=== PATIENT | female | born 1975 | race Caucasian/White ===

== ENCOUNTER → 2018-08-23 11:53 | Outpatient (CLI) | payer MEDICAID, SELFPAY ==
[2016-10-24 10:08] VITALS: BMI 26.8
[2018-08-10 10:52] VITALS: BMI 20.6
[2018-08-23 12:59] LABS: AST(SGOT) 11 U/L (15-37); Alanine Aminotransfer ALT/SGPT 18 U/L (13-56); Albumin, Serum 3.6 g/dL (3.2-5.0); Alkaline Phosphatase 77 U/L (45-117); Bilirubin, Direct 0.11 mg/dL (0.00-0.30); Cholesterol 136 mg/dL (200); Globulin 3.2 g/dL (2.2-4.2); High Density Lipoprotein 40 mg/dL; Protein, Total 6.8 g/dL (6.4-8.2); Triglycerides 105 mg/dL; Very Low Density Lipoprotein 21 mg/dL (5-40)
== END ==
PROVIDERS: Family Provider Family Medicine; PCP Family Medicine; Referring Provider Internal Medicine Cardiovascular Disease; Visit Provider Internal Medicine Cardiovascular Disease
DX: E78.5 Hyperlipidemia, unspecified (principal); I25.10 Atherosclerotic heart disease of native coronary artery without angina pectoris
CPT/HCPCS: 36415; 80061; 80076

== ENCOUNTER → 2019-04-25 | Outpatient (CLI) | payer MEDICAID, SELFPAY ==
[2016-10-24 10:08] VITALS: BMI 26.8
[2019-03-25 11:36] VITALS: BMI 22.6
[2019-04-25 11:43] LABS: AST(SGOT) 10 U/L (15-37); Alanine Aminotransfer ALT/SGPT 20 U/L (13-56); Albumin, Serum 3.6 g/dL (3.2-5.0); Alkaline Phosphatase 70 U/L (45-117); Cholesterol 128 mg/dL (200); Globulin 3.3 g/dL (2.2-4.2); High Density Lipoprotein 48 mg/dL; Protein, Total 6.9 g/dL (6.4-8.2); Triglycerides 69 mg/dL; Very Low Density Lipoprotein 14 mg/dL (5-40)
== END | disposition home or self-care (01) ==
LOC: LAB 10:35
PROVIDERS: Family Provider Family Medicine; PCP Family Medicine; Referring Provider Nurse Practitioner Family; Visit Provider Nurse Practitioner Family
DX: E78.5 Hyperlipidemia, unspecified (principal)
CPT/HCPCS: 36415; 80061; 80076

== ENCOUNTER → 2019-10-08 13:42 | Outpatient (CLI) | payer MEDICAID, SELFPAY ==
[2016-10-24 10:08] VITALS: BMI 26.8
[2019-09-26 13:15] VITALS: BMI 23.0
--- NOTE | 2019-10-08 13:44 | ECHOD_ITS ---
Reason For Study: CHF Procedure This was a 2D Doppler, Color Flow transthoracic echocardiogram. Myocardial strain analysis was performed in this exam to aid in the assessment of cardiac function. Exam performed in department. Left Ventricle Moderately dilated left ventricle. The estimated ejection fraction is 35-45 %. Stage 1 diastolic dysfunction. Infero-Basal: Severely Hypokinetic. Mid-Inferior: Severely Hypokinetic. Posterior- Basal: Severely hypokinetic. Right Ventricle Normal size and thickness. Normal systolic function. Atria Normal left atrium. Normal right atrium. Normal atrial septum. Mitral Valve Normal mitral valve. Moderately severe (3+) eccentric mitral valve insufficiency. Tricuspid Valve Normal tricuspid valve. Mild (1+) tricuspid valve insufficiency. Right ventricular systolic pressure estimated to be 22 mmHg. Aortic Valve Trisinus/trileaflet aortic valve. Mild diffuse aortic valve thickening. Mild (1+) aortic valve insufficiency. Pulmonic Valve Normal pulmonic valve. Trivial pulmonic valve insufficiency. Great Vessels Normal aortic root. Normal arch. Normal inferior vena cava. Inferior vena cava collapse with sniff. Pericardium/Pleural No pericardial effusion. MMode/2D Measurements & Calculations LVIDd: 5.2 cm IVSd: 0.75 cm Ao root diam: 3.3 cm LVIDs: 4.8 cm LVPWd: 0.78 cm RVDd: 2.7 cm FS: 8.3 % LAV(MOD-bp): 35.4 ml LA A4 area: 12.9 cm2 LA dimension(2D): 3.2 cm LAV(MOD-bp) Indexed: 22.8 ml/m2 LAV(MOD-sp2): 41.2 ml LAV(MOD-sp4): 29.2 ml RA A4 area: 10.4 cm2 Time Measurements MV dec time: 0.22 sec Doppler Measurements & Calculations MV E max isidro: 82.0 cm/sec Lat Peak E' Isidro: 10.8 cm/sec Med Peak E' Isidro: 6.8 cm/sec MV A max isidro: 57.8 cm/sec E/E' lat: 7.6 E/E' med: 12.1 MV E/A: 1.4 Ao V2 max: 121.1 cm/sec AI max isidro: 406.4 cm/sec LV V1 max: 78.8 cm/sec Ao max P.9 mmHg AI max P.1 mmHg LV V1 max P.5 mmHg AI dec slope: 244.2 cm/sec2 AI P1/2t: 487.6 msec PA V2 max: 83.3 cm/sec TR max isidro: 204.9 cm/sec TR max P.8 mmHg Interpretation Summary Moderately dilated left ventricle. The estimated ejection fraction is 35-45 %. Stage 1 diastolic dysfunction. Infero-Basal: Severely Hypokinetic. Mid-Inferior: Severely Hypokinetic. Posterior-Basal: Severely hypokinetic. Moderately severe (3+) eccentric mitral valve insufficiency. Mild (1+) tricuspid valve insufficiency. Right ventricular systolic pressure estimated to be 22 mmHg. Mild (1+) aortic valve insufficiency. Compared to echo report dated 03/08/2017, inferior posterior wall motion abnormalities have persisted, RVSP has remained about the same, but might regurgitation appears to have worsened from mild to moderate to severe. Recommend considering transesophageal echocardiogram to better evaluate degree of mitral vegetation. Would consider a transesophageal echocardiogram if clinically indicated. Ordering Physician: Stanford Jacques Referring Physician: PEDRO NAVAS Performed By: Meghann Kraus, JEANETTE, RVT
== END ==
PROVIDERS: PCP Family Medicine; Referring Provider Internal Medicine Cardiovascular Disease; Visit Provider Internal Medicine Cardiovascular Disease
DX: I25.5 Ischemic cardiomyopathy (principal); I25.10 Atherosclerotic heart disease of native coronary artery without angina pectoris; I25.2 Old myocardial infarction
CPT/HCPCS: 93306

== ENCOUNTER → 2019-10-16 09:20 | Outpatient (CLI) | payer MEDICAID, SELFPAY ==
[2016-10-24 10:08] VITALS: BMI 26.8
[2019-09-26 13:15] VITALS: BMI 23.0
--- NOTE | 2019-10-16 09:21 | STE_ITS ---
Reason For Study: CAD Stress Results Protocol: Cristofer Protocol Maximum Predicted HR: 176 bpm Target HR: 150 bpm % Maximum Predicted HR: 84 % DurationHeart Rate Stage (mm:ss) (bpm) BP Comment Baseline 70 98/54No Chest Pain Cristofer Protocol Stage I 3:00 90 106/60No Chest Pain Cristofer Protocol Stage II 3:00 103 116/58No Chest Pain Cristofer Protocol Stage III 3:00 123 130/50No Chest Pain; Mild Dyspnea Cristofer Protocol Stage IV 2:00 148 146/52No Chest Pain; Mild Dyspnea Recovery 85 96/52No Chest Pain Stress Duration: 11:00 mm:ss Maximum Stress HR: 148 bpm METS: 13 Baseline Echocardiogram Findings The estimated ejection fraction is 45 %. Stress Echo Wall motion Data Resting WM Intermediate WM Stress WM Resting Wall Motion Wall Motion Stress Mid-Lateral : Mildly hypokinetic. No regional wall motion Mid-Posterior: Mildly abnormalities noted. hypokinetic. Lateral-Basal: Mildly hypokinetic. EKG Data The baseline ECG displays normal sinus rhythm. The patient exercised according to the regular Cristofer protocol for a total duration of 11:00. The maximum heart rate attained was 150 beats per minute. This was 85% of maximum predicted heart rate. The patient exercised into stage 4 of the Cristofer protocol. At peak exercise, upsloping ST changes only were noted, which did not meet the criteria for ischemia. No clinical angina was noted. No arrhythmias noted. Interpretation Summary The estimated ejection fraction is 45 %. Normal, adequate, treadmill echocardiogram. Negative for ischemia by EKG and echocardiographic criteria. No anginal symptoms noted. No arrhythmias noted. Patient had baseline inferior basal lateral hypokinesis with an overall ejection fraction of 45%, with a final ejection fraction of 55 to 60% at peak exercise. Test terminated due to calf pain and target heart rate achieved. Patient tolerated procedure well. No complications. Ordering Physician: Stanford Jacques Referring Physician: Constantine Babcock Performed By: Elvia Olvera RDCS, RVT
== END ==
PROVIDERS: PCP Family Medicine; Referring Provider Internal Medicine Cardiovascular Disease; Visit Provider Internal Medicine Cardiovascular Disease
DX: I25.10 Atherosclerotic heart disease of native coronary artery without angina pectoris (principal); I25.2 Old myocardial infarction; I25.5 Ischemic cardiomyopathy
CPT/HCPCS: 93017; 93350

== ENCOUNTER 2019-10-21 08:56 | Outpatient (CLI) | payer MEDICAID, SELFPAY ==
[2016-10-24 10:08] VITALS: BMI 26.8
[2019-09-26 13:15] VITALS: BMI 23.0
--- NOTE | 2019-10-16 10:33 | RAD_ITS ---
STUDY: X-RAY CHEST REASON FOR EXAM: Female, 44 years old. PRE OP HEART CATH; -- H/O DC, STENT TECHNIQUE: PA and lateral views of the chest. COMPARISON: 10/23/2016 FINDINGS: The lungs are clear and expanded. There is no demonstrated pleural abnormality. Normal size heart. Normal mediastinum and gerard. Normal visualized pulmonary arteries. Normal visualized aortic arch and descending thoracic aorta. Normal visualized thoracic spine. Normal visualized ribs, clavicles, and shoulders. There is no demonstrated abnormality of the visualized soft tissue structures of the upper abdomen. RAD/Chest PA and Lateral IMPRESSION: Normal x-ray examination of the chest. Electronically Signed: Lonnie Marte DO at 15:02 EST Tel , Service support ,
[2019-10-16 11:29] LABS: Hematocrit 46.1 % (37-47); Hemoglobin 14.5 g/dL (12.0-15.0); Mean Corp Hgb Conc 31.5 g/dL (32-36); Mean Corpuscular Hgb 29.1 pg (27.0-32.0); Mean Corpuscular Volume 92.6 fL (81-99); Mean Platelet Vol. 10.1 fl (6.2-12.0); Platelet Count 242 K/mm3 (150-450); RBC Distribution Width CV 13.2 % (11.6-14.6); RBC Distribution Width SD 45.5 fl (35.1-43.9); Red Blood Count 4.98 M/mm3 (4.2-5.4); White Blood Count 7.5 K/mm3 (4.4-11.0)
[2019-10-16 11:50] LABS: International Normalized Ratio 1.1; Prothrombin Time (Protime)PT. 13.8 SECONDS (11.7-14.9)
[2019-10-16 11:51] LABS: Partial Thromboplast Time 33.8 Seconds (24.1-36.2)
[2019-10-16 12:02] LABS: AST(SGOT) 16 U/L (15-37); Alanine Aminotransfer ALT/SGPT 24 U/L (13-56); Alkaline Phosphatase 91 U/L (45-117); Anion Gap 7 (5-15); BUN 13 mg/dL (7-18); BUN/Creat Ratio 10.7 RATIO (10-20); Bilirubin, Direct 0.13 mg/dL (0.00-0.30); Calcium,Total 9.7 mg/dL (8.5-10.1); Chloride 107 mmol/L (98-107); Cholesterol 154 mg/dL (200); Creatinine, Serum 1.22 mg/dL (0.55-1.02); EST Glomerular Filtration Rate 51 mL/min (>60); Est Glom Filt Rate - Afr Amer 62 mL/min (>60); Globulin 3.8 g/dL (2.2-4.2); Glucose 77 mg/dL (74-106); High Density Lipoprotein 45 mg/dL; Potassium 4.1 mmol/L (3.5-5.1); Protein, Total 7.8 g/dL (6.4-8.2); Sodium Level 137 mmol/L (136-145); Triglycerides 122 mg/dL; Very Low Density Lipoprotein 24 mg/dL (5-40)
[2019-10-18 09:44] VITALS: BMI 23.0
--- NOTE | 2019-10-21 09:12 | ECHOTEE_ITS ---
Reason For Study: Valve Evaluation Medication LEOBARDO probe 6VT-D (SN [id number]) passed with minimal difficulty. No complications were noted. [id number] gargled and swallowed. Cetacaine Topical [place] given X2 orally. Versed 2 mg given slow IVP. Fentanyl 25 mcg given slow IVP. Performed a rapid injection of agitated mix of 9 cc saline and 1cc air to assess for atrial septal defect. Left Ventricle Normal size and thickness. The estimated ejection fraction is 45 %. Posterior-Basal: Mildly hypokinetic. Infero-Basal: Severely Hypokinetic. Right Ventricle Normal size and thickness. The right ventricular wall motion is normal. Atria Normal atrial septum. Bubble contrast study negative for right to left interatrial shunt. The left atrium is mildly enlarged. No thrombus is detected in the left atrial appendage. Normal right atrium. Mitral Valve Mild focal mitral valve thickening. There is no mitral valve stenosis. Moderately severe (3+) posteriorly directed mitral valve insufficiency. Tricuspid Valve Normal tricuspid valve. Unable to estimate RV systolic pressure due to insufficient tricuspid regurgitant envelope. Aortic Valve Trisinus/trileaflet aortic valve. Mild focal aortic valve thickening. Mild (1+) aortic valve insufficiency. Pulmonic Valve Normal pulmonic valve. Vessels Normal aortic root. Normal arch. The pulmonary artery is normal size. Pulmonary venous flow normal. Interpretation Summary The estimated ejection fraction is 45 %. Posterior-Basal: Mildly hypokinetic Infero-Basal: Severely Hypokinetic. Bubble contrast study negative for right to left interatrial shunt. The left atrium is mildly enlarged. No thrombus is detected in the left atrial appendage. Moderately severe (3+) posteriorly directed mitral valve insufficiency. Unable to estimate RV systolic pressure due to insufficient tricuspid regurgitant envelope. Mild (1+) aortic valve insufficiency. Ordering Physician: Stanford Jacques Referring Physician: Booker Babcock Performed By: Bandar Miramontes RCS
[2019-10-21 09:28] LABS: Internal QC Validated? YES +Cl - CLEAR BKGD; Pregnancy, Serum, hCG Quali. NEGATIVE Negative
[2019-10-21 12:11] LABS: Blood Gas Specimen Type VEN; VBG BASE EXCESS -1 mmol/L (-1.0-3.5); VBG Bicarbonate 25 mmol/L (22-26); VBG Oxygen Content 26 mmol/L (23-33); VBG PO2 38 mmHg (25-40); VBG SO2 69 % (50-70); VBG pCO2 44.8 mmHg (41-51); VBG pH 7.35 (7.32-7.42)
[2019-10-21 12:11] LABS: Blood Gas Specimen Type VEN; VBG BASE EXCESS 0 mmol/L (-1.0-3.5); VBG Bicarbonate 25 mmol/L (22-26); VBG Oxygen Content 27 mmol/L (23-33); VBG PO2 38 mmHg (25-40); VBG SO2 69 % (50-70); VBG pCO2 45.1 mmHg (41-51); VBG pH 7.36 (7.32-7.42)
[2019-10-21 12:11] LABS: Base Excess -2 mmol/L (-2 to +2); Bicarbonate 23.6 mmol/L (22-26); Blood Gas Specimen Type ART; PO2 80 mmHG (75-100); SO2 95 % (95-99); Total Carbon Dioxide 25 mmol/L; pCO2 41.8 mmHg (35-45); pH 7.36 (7.35-7.45)
--- NOTE | 2019-10-21 12:15 | CL.D_ITS ---
Patient Name: ZULMA ALFRED Study Date: 10/21/2019 Performing: Stanford Jacques MD Ht: 61 inches 154.94 cm : 1975 Wt: 121.98 lbs 55.33 kg Age: 44 Gender: female BSA: 1.53 PROCEDURE(S) PERFORMED [id number]/COR/LV CLINICAL PROFILE AND INDICATIONS Indications: Stable Known CAD, LV Dysfunction, Valvular Disease Heart Failure: NYHA Class: 1, Newly Diagnosed: No, Heart Failure Type: Systolic Stress/Imaging Date: 10/16/2019Stress Echocardiogram: Negative Angina Classification Anginal Classification w/in 2 Weeks: No symptoms CAD Presentations: Other: Fatigue Comorbidities/Risk Factors: Current/Recent Smoker (< 1year) Hypertension Dyslipidemia Prior PCI Peripheral Arterial Disease CONCLUSIONS Segmented LV systolic dysfunction- Moderate LVEF: by LV gram 45 % Depressed Left Ventricular systolic function - Moderate Non obstructive coronary arteries Widely patent LCX stent Cardiac output - Preserved The patient has normal pulmonary hemodynamics. RECOMMENDATIONS Management as per referring Public Health Professor Consider Eval for mitral repair surgery vs mitral clip procedure. MR more prominnet on LEOBARDO. Manual sheath removal., DESCRIPTION OF PROCEDURE The patient arrived to the procedure lab. The risks and benefits of the procedure as well as a full d escription of our services here and current unavailability of surgical backup were fully explained to the patient and/or their significant other prior to the catheterization. The Timeout was completed, verifying the correct patient and procedure. The patient's procedural site was prepped and draped in the usual fashion. Local anesthetic was given subcutaneously to left groin region with Lidocaine 2%. Local anesthetic was given subcutaneously to right groin region with Lidocaine 2%. Using a modified S eldinger technique, arterial access was obtained via the left femoral artery, a 4Fr sheath was insert ed Venous access was obtained via the right femoral vein, a 7Fr sheath was inserted. A 7Fr thermal di lution catheter was inserted and right heart pressures were recorded, it was then advanced to PA posi tion for cardiac outputs. Thermal dilution cardiac outputs were then recorded. O2 saturations were then obtained. The Thermal dilution catheter was then removed. Simultaneous pressure s were then recorded. Left Ventriculography was performed in MCDONALD projection using a 4 Fr. Pigtail cat heter. LV to AO pullback pressures were then recorded. Left Coronary Artery selective angiography was performed in multiple views using a 4 Fr. JL5 catheter. Left Coronary Artery selective angiography w as performed in multiple views using a 4 Fr. JL4 catheter. Right Coronary Artery selective angiograph y was then performed in multiple views using a 4 Fr. 3DRC catheter.The arterial sheath was pulled and manual compression applied until hemostasis is achieved. CORONARY ANGIOGRAPHY DOMINANCE: Right Dominant LEFT HEART ASSESSMENT Left Ventricular Ejection Fraction: by LV Gram 45 % Posterior Basal Hypokinesis - Moderate Depressed Left Ventricular systolic function RIGHT HEART ASSESSMENT Thermal CO: 4 Thermal CI: 2.61 Denise CO: 3.97 Denise CI: 2.59 PW: 06/08 7 PA: 21/4 13 RV: 21/0 4 RA: 4 2 PVR: 120 SVR: 1700 Right Heart pressures - normal LEFT MAIN: Angiographically normal LEFT ANTERIOR DESCENDING ARTERY: MID LAD: Mild luminal irregularities less than 30% CIRCUMFLEX ARTERY: MID CIRC: Previously placed stent is patent RIGHT CORONARY ARTERY: PROX RCA: Mild luminal irregularities less than 30% MID RCA: Mild luminal irregularities less than 30% VALVE FINDINGS: Mitral Valve Insufficiency - Grade 1 COMPLICATIONS No Complications PROCEDURE MEDICATIONS Oxygen: 0 L/min via nasal cannula SUMMARY OF HEMODYNAMIC DATA Time AIR REST ECG 09:38:53 RA / (2) SV 11:45:33 RV 21/0, 4 11:46:04 PW 06/08 (7) PV 11:46:25 PA /4 (13) PA 11:46:42 LV 102/-5, 13 11:50:49 LV 98/-5, 12 11:50:57 LV 104/-5, 11 11:51:15 PW 08/10 (9) 11:51:15 LV 102/-5, 12 11:51:32 PW (10) 11:51:32 LV 107/-4, 12 11:51:52 RV 26/0, 7 11:51:52 LV 106/-3, 14 11:52:00 RV 24/1, 6 11:52:00 LV 106/-3, 15 11:53:25 LVp 105/-3, 15 11:53:30 AOp 111/59 (80) 11:53:35 AO 96/77 (87) SA 11:57:26 Type SV CO (l/m) CI (l/m/ HR Time AIR REST Thermal 60.60 4.00 2.61 66 09:38:53 Denise 60.20 3.97 2.59 66 09:38:53 Label % O2 Pres/Loc Time AIR REST AO 95 PV 11:58:18 PA 69 PA 11:58:23 Signed By Stanford Jacques MD On 10/21/2019 12:14:50 Stanford Jacques MD
== END 2019-10-21 17:42 | disposition home or self-care (01) ==
LOC: CVS 08:57
PROVIDERS: PCP Family Medicine; Referring Provider Internal Medicine Cardiovascular Disease; Visit Provider Internal Medicine Cardiovascular Disease
DX: I25.5 Ischemic cardiomyopathy (principal); I34.0 Nonrheumatic mitral (valve) insufficiency; I35.1 Nonrheumatic aortic (valve) insufficiency; I25.2 Old myocardial infarction; I25.10 Atherosclerotic heart disease of native coronary artery without angina pectoris; E78.00 Pure hypercholesterolemia, unspecified; E78.5 Hyperlipidemia, unspecified; Z98.62 Peripheral vascular angioplasty status; Z95.5 Presence of coronary angioplasty implant and graft
CPT/HCPCS: 36415; 71046; 80048; 80061; 80076; 82803; 84703; 85027; 85610; 85730; 93312; 93320; 93325; 93460; A4216; C1751; C1769; C1894; Q9967

== ENCOUNTER → 2020-06-22 12:49 | Outpatient (CLI) | payer MEDICAID, SELFPAY ==
[2016-10-24 10:08] VITALS: BMI 26.8
[2020-05-27 08:24] VITALS: BMI 22.4
--- NOTE | 2020-06-22 12:49 | ECHOD_ITS ---
Reason For Study: MV Disease Procedure This was a 2D Doppler, Color Flow transthoracic echocardiogram. Exam performed in department. Left Ventricle Normal LV size. The estimated ejection fraction is 45 %. The global longitudinal strain is moderately abnormal. The global longitudinal strain = -14.4% (abnormal). Infero-Basal: Akinetic. Posterior-Basal: Severely hypokinetic. Mid-Inferior: Akinetic. Basal inferoseptal: Hypokinetic. The rest of the wall segments are normal. Right Ventricle Normal RV size. Normal systolic function. Atria Normal left atrium. Normal right atrium. Mitral Valve Normal mitral valve. Mild (1+) eccentric mitral valve insufficiency. Tricuspid Valve Normal tricuspid valve. Aortic Valve Normal aortic valve. Trisinus/trileaflet aortic valve. Mild (1+) aortic valve insufficiency. Pulmonic Valve Normal pulmonic valve. Great Vessels Normal aortic root. The pulmonary artery is normal size. Normal inferior vena cava. Pericardium/Pleural No pericardial effusion. MMode/2D Measurements & Calculations LVIDd: 5.4 cm IVSd: 0.98 cm Ao root diam: 3.3 cm LVIDs: 4.5 cm LVPWd: 0.92 cm LA dimension: 3.2 cm RVDd: 2.5 cm FS: 16.9 % LAV(MOD-bp): 37.2 ml LA A4 area: 13.5 cm2 RA A4 area: 9.4 cm2 LAV(MOD-bp) Indexed: 24.7 ml/m2 LAV(MOD-sp2): 41.4 ml LAV(MOD-sp4): 31.0 ml Time Measurements MV dec time: 0.20 sec Doppler Measurements & Calculations MV E max isidro: 98.1 cm/sec Lat Peak E' Isidro: 9.0 cm/sec Med Peak E' Isidro: 7.2 cm/sec MV A max isidro: 63.4 cm/sec E/E' lat: 10.9 E/E' med: 13.7 MV E/A: 1.5 MV V2 max: 94.9 cm/sec MV P1/2t max isidro: 94.9 cm/sec Ao V2 max: 113.8 cm/sec MV max P.6 mmHg MV P1/2t: 104.3 msec Ao max P.2 mmHg MV V2 mean: 49.6 cm/sec MV dec slope: 266.4 cm/sec2 MV mean P.2 mmHg MVA(P1/2t): 2.1 cm2 MV V2 VTI: 30.8 cm AI max isidro: 390.6 cm/sec LV V1 max: 83.8 cm/sec MR max isidro: 548.8 cm/sec AI max P.2 mmHg LV V1 max P.8 mmHg MR max P.5 mmHg MR mean isidro: 422.8 cm/sec AI dec slope: 134.9 cm/sec2 MR mean P.8 mmHg AI P1/2t: 848.2 msec MR VTI: 198.3 cm PA V2 max: 69.5 cm/sec Interpretation Summary Normal LV size. The estimated ejection fraction is 45 %. The global longitudinal strain is moderately abnormal. The global longitudinal strain = -14.4% (abnormal). Mild (1+) aortic valve insufficiency. Compared to prior study, there is no significant change. Ordering Physician: Mamadou Sweeeny Referring Physician: Booker Babcock Performed By: Bandar Miramontes RCS
== END ==
PROVIDERS: PCP Family Medicine; Referring Provider Nurse Practitioner Family; Visit Provider Nurse Practitioner Family
DX: I34.0 Nonrheumatic mitral (valve) insufficiency (principal); I25.10 Atherosclerotic heart disease of native coronary artery without angina pectoris; I25.5 Ischemic cardiomyopathy; Z95.5 Presence of coronary angioplasty implant and graft
CPT/HCPCS: 93306

== ENCOUNTER → 2020-12-21 11:11 | Outpatient (CLI) | payer MEDICAID, SELFPAY ==
[2016-10-24 10:08] VITALS: BMI 26.8
[2020-12-21 10:34] VITALS: BMI 21.5
[2020-12-21 12:12] LABS: ALB/GLOB Ratio 1.1 RATIO (0.9-2.4); AST(SGOT) 9 U/L (15-37); Alanine Aminotransfer ALT/SGPT 24 U/L (13-56); Albumin, Serum 3.8 g/dL (3.2-5.0); Alkaline Phosphatase 75 U/L (45-117); Anion Gap 5 (5-15); BUN 8 mg/dL (7-18); BUN/Creat Ratio 8.2 RATIO (10-20); Calcium,Total 9.3 mg/dL (8.5-10.1); Chloride 104 mmol/L (98-107); Cholesterol 148 mg/dL (200); Creatinine, Serum 0.98 mg/dL (0.55-1.02); EST Glomerular Filtration Rate 66 mL/min (>60); Est Glom Filt Rate - Afr Amer 79 mL/min (>60); Globulin 3.4 g/dL (2.2-4.2); Glucose 81 mg/dL (74-106); High Density Lipoprotein 64 mg/dL; Potassium 3.9 mmol/L (3.5-5.1); Protein, Total 7.2 g/dL (6.4-8.2); Sodium Level 139 mmol/L (136-145); Triglycerides 81 mg/dL; Very Low Density Lipoprotein 16 mg/dL (5-40)
== END ==
PROVIDERS: PCP Family Medicine; Referring Provider Physician Assistant Medical; Visit Provider Physician Assistant Medical
DX: I34.0 Nonrheumatic mitral (valve) insufficiency (principal); I25.5 Ischemic cardiomyopathy; I25.10 Atherosclerotic heart disease of native coronary artery without angina pectoris; E78.5 Hyperlipidemia, unspecified
CPT/HCPCS: 36415; 80053; 80061

== ENCOUNTER → 2021-01-27 08:40 | Outpatient (CLI) | payer MEDICAID, SELFPAY ==
[2016-10-24 10:08] VITALS: BMI 26.8
[2020-12-21 10:34] VITALS: BMI 21.5
[2021-01-27 09:39] LABS: Absolute Lymphocyte Count 2.34 X10^3/uL (0.83-4.51); Absolute Neutrophil Count 6.7 X10^3/uL (2.0-7.7); Basophil# 0.06 X10^3/uL; Basophil% 0.6 % (0-1); Eosinophil# 0.19 X10^3/uL; Eosinophils% 1.8 % (0-5); Hematocrit 44.7 % (37-47); Hemoglobin 14.1 g/dL (12.0-15.0); Lymphocyte # 2.34 X10^3/ul (0.83-4.51); Lymphocyte % 22.7 % (19-41); Mean Corp Hgb Conc 31.5 g/dL (32-36); Mean Corpuscular Volume 91.8 fL (81-99); Mean Platelet Vol. 10.5 fl (6.2-12.0); Monocyte% 9.7 % (0-10); NRBC Flagged by Analyzer 0 % (0-5); Neutrophil # 6.69 X10^3/uL (2.7-7.7); Neutrophil % 64.7 % (47-70); Platelet Count 283 K/mm3 (150-450); RBC Distribution Width CV 14.4 % (11.6-14.6); Red Blood Count 4.87 M/mm3 (4.2-5.4); White Blood Count 10.3 K/mm3 (4.4-11.0)
== END ==
PROVIDERS: PCP Family Medicine; Referring Provider Physician Assistant Medical; Visit Provider Physician Assistant Medical
DX: T07.XXXA Unspecified multiple injuries, initial encounter (principal); Z85.71 Personal history of Hodgkin lymphoma
CPT/HCPCS: 36415; 85025

== ENCOUNTER → 2022-01-28 | Outpatient (CLI) | payer MEDICAID, SELFPAY ==
[2016-10-24 10:08] VITALS: BMI 26.8
--- NOTE | 2022-01-28 09:03 | ECHOCS_ITS ---
Reason For Study: Murmur Procedure This was a 2D Doppler, Color Flow transthoracic echocardiogram. Myocardial strain analysis was performed in this exam to aid in the assessment of cardiac function. Contrast injection was performed. Exam performed in department. Left Ventricle Normal LV size. The estimated ejection fraction is 37 %. Moderate segmental systolic dysfunction (see wall motion). Posterior-Basal: Akinetic. Mid-Posterior: Akinetic. [place] : Hypokinetic. Lateral- Basal: Hypokinetic. Mid-Lateral : Hypokinetic. Right Ventricle Normal RV size. Normal systolic function. Atria Normal left atrium. Normal right atrium. Mitral Valve Normal mitral valve. Mild-Moderate (1-2+) eccentric mitral valve insufficiency. Tricuspid Valve Normal tricuspid valve. Mild tricuspid valve insufficiency. Pulmonary artery systolic pressure is 24 mmHg. Aortic Valve Trisinus/trileaflet aortic valve. Mild-Moderate (1-2+) aortic valve insufficiency. Pulmonic Valve Normal pulmonic valve. Great Vessels Normal aortic root. The pulmonary artery is normal size. Normal inferior vena cava. Pericardium/Pleural No pericardial effusion. Medication Diluted definity 5ml given slow IV push to enhance endocardial definition. MMode/2D Measurements & Calculations LVIDd: 5.2 cm IVSd: 1.0 cm Ao root diam: 3.0 cm LVIDs: 4.4 cm LVPWd: 0.82 cm RVDd: 2.4 cm FS: 16.0 % LAV(MOD-bp): 34.0 ml LVAd ap4: 31.5 cm2 LVAd ap2: 32.4 cm2 LAV(MOD-bp) Indexed: 21.6 ml/m2 LVLd ap4: 7.2 cm LVLd ap2: 7.7 cm LAV(MOD-sp2): 40.0 ml EDV(MOD-sp4): 113.2 ml EDV(MOD-sp2): 115.0 ml LAV(MOD-sp4): 28.2 ml EDV(sp4-el): 116.7 ml EDV(sp2-el): 115.3 ml LVAs ap4: 23.9 cm2 LVAs ap2: 22.2 cm2 LVLs ap4: 6.2 cm LVLs ap2: 6.4 cm ESV(MOD-sp4): 79.3 ml ESV(MOD-sp2): 62.9 ml ESV(sp4-el): 77.5 ml ESV(sp2-el): 64.6 ml EF(MOD-sp4): 30.0 % EF(MOD-sp2): 45.3 % EF(sp4-el): 33.6 % SV(MOD-sp4): 33.9 ml SV(MOD-sp2): 52.1 ml SV(sp4-el): 39.2 ml LA A4 area: 12.5 cm2 LA dimension(2D): 3.3 cm RA A4 area: 9.6 cm2 Doppler Measurements & Calculations MV E max isidro: 91.7 cm/sec Lat Peak E' Isidro: 7.5 cm/sec Med Peak E' Isidro: 5.0 cm/sec MV A max isidro: 73.3 cm/sec E/E' lat: 12.2 E/E' med: 18.4 MV E/A: 1.3 Ao V2 max: 125.6 cm/sec AI max isidro: 403.4 cm/sec LV V1 max: 89.1 cm/sec Ao max P.3 mmHg AI max P.1 mmHg LV V1 max P.2 mmHg Ao V2 mean: 91.5 cm/sec AI dec slope: 220.1 cm/sec2 Ao mean P.7 mmHg AI P1/2t: 536.9 msec Ao V2 VTI: 24.8 cm PA V2 max: 77.6 cm/sec TR max isidro: 233.7 cm/sec TR max P.8 mmHg ECHO/Echo Complete W/ Contrast Interpretation Summary Normal LV size. The estimated ejection fraction is 37 %. Moderate segmental systolic dysfunction (see wall motion). The global longitudinal strain = -15% (abnormal). The global longitudinal strain is borderline abnormal. The global longitudinal strain = -15% (abnormal). Compared to previous study, the left ventricular systolic function has worsened.. Contrast injection was performed. Ordering Physician: Tesfaye Guajardo Referring Physician: Booker Babcock Performed By: Connie Sweeney, JEANETTE, RVT
== END | disposition home or self-care (01) ==
LOC: CVS 09:01
PROVIDERS: PCP Family Medicine; Referring Provider Internal Medicine Cardiovascular Disease; Visit Provider Internal Medicine Cardiovascular Disease
DX: Z95.5 Presence of coronary angioplasty implant and graft (principal)
CPT/HCPCS: 93306; Q9957; A4216; C8929

== ENCOUNTER → 2022-05-03 | Outpatient (CLI) | payer MEDICAID, SELFPAY ==
[2016-10-24 10:08] VITALS: BMI 26.8
--- NOTE | 2022-05-03 13:10 | ECHODONC_ITS ---
Version 2 Reason For Study: CMP Procedure This was a 2D Doppler, Color Flow transthoracic echocardiogram. Myocardial strain analysis was performed in this exam to aid in the assessment of cardiac function. Exam performed in department. Left Ventricle Normal LV size. Left ventricular systolic function is lower limits of normal. The estimated ejection fraction is 50 %. Mid-Lateral : Hypokinetic. Mid-Posterior: Hypokinetic. Right Ventricle Normal RV size. Normal systolic function. Atria Normal left atrium. Normal right atrium. Mitral Valve Bileaflet diffuse mitral valve thickening. Mild (1+) eccentric mitral valve insufficiency. Tricuspid Valve Normal tricuspid valve. Aortic Valve Trisinus/trileaflet aortic valve. Mild (1+) aortic valve insufficiency. Pulmonic Valve Normal pulmonic valve. Great Vessels Normal aortic root. The pulmonary artery is normal size. Normal inferior vena cava. Pericardium/Pleural No pericardial effusion. MMode/2D Measurements & Calculations LVIDd: 5.7 cm IVSd: 0.92 cm Ao root diam: 3.2 cm LVIDs: 4.8 cm LVPWd: 0.61 cm LA dimension: 3.5 cm RVDd: 2.7 cm FS: 17.0 % LAV(MOD-bp): 43.1 ml LVAd ap4: 33.6 cm2 SV(MOD-sp4): 54.2 ml LAV(MOD-bp) Indexed: 27.4 ml/m2 LVLd ap4: 7.8 cm LAV(MOD-sp2): 49.0 ml EDV(MOD-sp4): 115.2 ml LAV(MOD-sp4): 37.4 ml EDV(sp4-el): 122.4 ml LVAs ap4: 21.9 cm2 LVLs ap4: 6.4 cm ESV(MOD-sp4): 61.0 ml ESV(sp4-el): 64.2 ml EF(MOD-sp4): 47.0 % EF(sp4-el): 47.6 % SV(sp4-el): 58.3 ml LA A4 area: 15.1 cm2 RA A4 area: 11.6 cm2 Time Measurements MV dec time: 0.20 sec Doppler Measurements & Calculations MV E max isidro: 78.9 cm/sec Lat Peak E' Isidro: 10.0 cm/sec Med Peak E' Isidro: 7.8 cm/sec MV A max isidro: 72.3 cm/sec E/E' lat: 7.9 E/E' med: 10.1 MV E/A: 1.1 MV V2 max: 91.8 cm/sec MV P1/2t max isidro: 90.8 cm/sec Ao V2 max: 143.6 cm/sec MV max P.4 mmHg MV P1/2t: 73.6 msec Ao max P.3 mmHg MV V2 mean: 52.9 cm/sec MV mean P.3 mmHg MV dec slope: 361.6 cm/sec2 MV V2 VTI: 26.0 cm MVA(P1/2t): 3.0 cm2 AI max isidro: 414.7 cm/sec LV V1 max: 89.7 cm/sec PA V2 max: 81.3 cm/sec AI max P.8 mmHg LV V1 max P.2 mmHg AI dec slope: 232.0 cm/sec2 AI P1/2t: 523.5 msec TR max isidro: 215.7 cm/sec TR max P.6 mmHg ECHO/ONC Echo Complete Interpretation Summary Normal LV size. Left ventricular systolic function is lower limits of normal. Mid-Lateral : Hypokinetic The estimated ejection fraction is 50 %. Mid-Posterior: Hypokinetic The global longitudinal strain is mildly abnormal. The global longitudinal stra in = -16% (abnormal). Compared to previous study, the left ventricular systolic function has improved .. Ordering Physician: Tesfaye Guajardo Referring Physician: Booker Babcock Performed By: Bandar Miramontes RCS
== END | disposition home or self-care (01) ==
LOC: CVS 13:09
PROVIDERS: PCP Family Medicine; Referring Provider Internal Medicine Cardiovascular Disease; Visit Provider Internal Medicine Cardiovascular Disease
DX: I05.9 Rheumatic mitral valve disease, unspecified (principal); I73.9 Peripheral vascular disease, unspecified; I25.10 Atherosclerotic heart disease of native coronary artery without angina pectoris; I25.2 Old myocardial infarction; I25.5 Ischemic cardiomyopathy; E78.5 Hyperlipidemia, unspecified; Z95.5 Presence of coronary angioplasty implant and graft; Z85.71 Personal history of Hodgkin lymphoma
CPT/HCPCS: 93306; 93356

== ENCOUNTER → 2024-11-14 | Outpatient (CLI) | payer MEDICAID, SELFPAY ==
[2016-10-24 10:08] VITALS: BMI 26.8
[2024-11-14 21:06] LABS: AST(SGOT) 17 U/L (<=31); Alanine Aminotransfer ALT/SGPT 13 U/L (<=34); Albumin, Serum 4.1 g/dL (3.5-5.0); Alkaline Phosphatase 108 U/L (35-104); Bilirubin, Direct 0.09 mg/dL (0.00-0.30); Cholesterol 282 mg/dL (<=200); Globulin 2.8 g/dL (2.2-4.2); High Density Lipoprotein 47 mg/dL; Low Density Lipoprotein Calc. 200 mg/dL; Protein, Total 6.9 g/dL (5.9-8.4); Total Bilirubin 0.22 mg/dL (0.00-1.30); Triglycerides 175 mg/dL; Very Low Density Lipoprotein 35 mg/dL (5-40); cholesterol:hdl ratio screen 6.05
== END | disposition home or self-care (01) ==
LOC: LAB 13:43
PROVIDERS: PCP Family Medicine; Referring Provider Internal Medicine Cardiovascular Disease; Visit Provider Internal Medicine Cardiovascular Disease
DX: E78.5 Hyperlipidemia, unspecified (principal)
CPT/HCPCS: 36415; 80061; 80076

== ENCOUNTER 2025-02-06 16:27 | Emergency (ER) | payer MEDICAID, SELFPAY ==
[2016-10-24 10:08] VITALS: BMI 26.8
[2025-02-06 16:28] VITALS: BP 118/84; PULSE 86; RESP 16; TEMP 36.6; O2SAT 98; BMI 28.4
[2025-02-06] MEDS: Ketorolac 30 MG/ML Syringe IV (16:48)
[2025-02-06 17:00] LABS: Absolute Neutrophil Count 4.9 X10^3/uL (2.0-7.7); Basophil# 0.07 X10^3/uL; Basophil% 0.8 % (0-1); Eosinophil# 0.14 X10^3/uL; Eosinophils% 1.7 % (0-5); Hematocrit 40.9 % (37-47); Hemoglobin 13.1 g/dL (12.0-15.0); Lymphocyte % 29.9 % (19-41); Mean Corpuscular Hgb 29.2 pg (27.0-32.0); Mean Corpuscular Volume 91.3 fL (81-99); Monocyte# 0.74 X10^3/uL; Monocyte% 8.8 % (0-10); NRBC Flagged by Analyzer 0 % (0-5); Neutrophil % 58.6 % (47-70); Platelet Count 321 K/mm3 (150-450); RBC Distribution Width CV 14.1 % (11.6-14.6); RBC Distribution Width SD 47.8 fl (35.1-43.9); Red Blood Count 4.48 M/mm3 (4.2-5.4); White Blood Count 8.4 K/mm3 (4.4-11.0)
[2025-02-06 17:12] LABS: Internal QC Validated? YES +Cl - CLEAR BKGD; Pregnancy, Serum, hCG Quali. NEGATIVE Negative; Record Kit Lot#, Serum Preg. 947241
--- NOTE | 2025-02-06 17:15 | CT_ITS ---
PROCEDURE: ABDOMEN/PELVIS W IV CONT ONLY 02/06/2025 REASON FOR EXAM: R FLANK PAIN TECHNIQUE: Abdomen and pelvis CT with intravenous contrast. Coronal and Sagittal reconstruction series were provided. PATIENT PREPARATION: Per protocol ORAL CONTRAST TYPE: None. CONTRAST: Isovue 370 VOLUME: 100 mL One or more dose reduction techniques were used (e.g., Automated exposure control, adjustment of the mA and/or kV according to patient size, use of iterative reconstruction technique. RADIATION DOSE SUMMARY: CTDlvol: 26 mGy DLP: 800 mGycm COMPARISON: None. FINDINGS: Lung bases: Unremarkable. Liver: The liver is normal in size without suspicious hepatic mass. The major portal veins are patent. No biliary ductal dilation. Gallbladder: Prior cholecystectomy. Spleen: Normal in size. Pancreas: Unremarkable. Adrenals: No adrenal mass. Kidneys: No hydronephrosis or nephrolithiasis. Bladder: Mildly distended and unremarkable. Reproductive Organs: Surgically absent. Bowel: Small hiatal hernia. The bowel loops are nondilated. No ascites or pneumoperitoneum. Normal appendix. Lymph nodes: No suspicious lymphadenopathy. Vasculature: Moderate mixed plaque of the aortoiliac vessels. Bones: Small fat containing umbilical hernia. Mild thoracolumbar spondylosis. CT/Abdomen/Pelvis W IV Cont ONLY IMPRESSION: No acute abdominopelvic finding. Reading Location: [id number]
[2025-02-06 17:37] LABS: Lipase 27 U/L (13-75)
[2025-02-06 17:38] LABS: ALB/GLOB Ratio 1.6 RATIO (0.9-2.4); AST(SGOT) 25 U/L (<=31); Alanine Aminotransfer ALT/SGPT 15 U/L (<=34); Albumin, Serum 4.4 g/dL (3.5-5.0); Alkaline Phosphatase 109 U/L (35-104); Anion Gap 12 (5-15); BUN 12 mg/dL (4-19); BUN/Creat Ratio 13.5 RATIO (10-20); Calcium,Total 10.2 mg/dL (7.6-11.0); Carbon Dioxide 24.7 mmol/L (21.0-32.0); Chloride 104 mmol/L (98-108); Creatinine, Serum 0.89 mg/dL (0.70-1.20); EST Glomerular Filtration Rate 80 (>60); Estimated Creatinine Clearance 67.57 ml/min (50-250); Globulin 2.8 g/dL (2.2-4.2); Glucose 95 mg/dL (70-99); Potassium 4.1 mmol/L (3.3-5.1); Protein, Total 7.1 g/dL (5.9-8.4); Sodium Level 140 mmol/L (133-145); Total Bilirubin 0.19 mg/dL (0.00-1.30)
--- NOTE | 2025-02-06 17:45 | EDS_ITS ---
HPI <WILL Lu - Last Filed: 02/06/25 21:22> History of Present Illness Chief Complaint: Flank Pain Narrative Narrative: Patient presenting today with right flank pain that radiates to her back she has had over the last several days. Her pain has been constant, burning, and sharp. She denies any history of kidney stones, fevers, chills, urinary symptoms, and stool changes. Her last bowel movement was today and was normal for her. She has a history of CAD. She denies any injury to her back/right flank. She has had no rash and denies recent heavy lifting. [facility] <WILL Lu - Last Filed: 02/06/25 21:22> [facility] Medical History History of Hodgkin's lymphoma Peripheral vascular occlusive disease Multiple bruises Chronic headaches Ischemic cardiomyopathy Old inferior wall myocardial infarction Anemia Atherosclerotic heart disease of [place] coronary artery without angina pectoris Hyperlipidemia Home Medications ?Medication ?Instructions ?Recorded ?Last Taken ?Type aspirin 81 mg tablet,delayed 81 mg PO DAILY@0800 #90 t abs 10/26/16 10/21/19 Rx release sumatriptan succinate 25 mg tablet 25 mg PO .QD PRN mi graine headache 01/01/18 Unknown History pantoprazole 40 mg tablet,delayed 40 mg PO DAILY 09/29 Unknown History release zonisamide 100 mg capsule 100 mg PO DAILY 09/29/23 Unk nown History atorvastatin 40 mg tablet 40 mg PO QHS #90 tabs Unknown Rx carvedilol 6.25 mg tablet (Coreg) 6.25 mg PO BID #180 tabs 11/14/24 Unknown Rx spironolactone 25 mg tablet 25 mg PO DAILY #90 tabs Unknown Rx trazodone 50 mg tablet 50 mg PO DAILY PRN sleep Unknown History cephalexin 500 mg capsule 500 mg PO TID 7 days #20 cap s 02/06/25 Unknown Rx Allergy/AdvReac Type Severity Reaction Status Date / Time venom-honey bee Allergy Swelling Verified 02/06/25 16:29 acetaminophen (From Tylenol) AdvReac Severe upset Verified 02/06/25 16:29 stomach codeine AdvReac Nausea Verified 02/06/25 16:29 Family History Father Heart disease Other Cancer Surgical History History of partial hysterectomy Hx laparoscopic cholecystectomy History of transesophageal echocardiography (LEOBARDO) (10/21/19) History of right and left heart catheterization (10/21/19) History of angioplasty of peripheral vessel (10/23/16) History of coronary artery stent placement (10/23/16) History of left breast biopsy Social History Smoking Status: Current every day smoker tobacco type: cigarettes alcohol intake: current alcohol intake frequency: holidays/special occasions only substance use type: does not use caffeine: Yes Type: coffee Number of servings: 3 ROS <WILL Lu - Last Filed: 02/06/25 21:22> ROS ED Constitutional Constitutional ED: Denies chills or fever(s) Cardiovascular Cardiovascular: Denies chest pain Respiratory/Chest Respiratory/Chest: Denies dyspnea Gastrointestinal Gastrointestinal: Denies abdominal pain, constipation, diarrhea, nausea or vomiting Genitourinary Genitourinary ED: Denies dysuria, hematuria or urinary frequency Musculoskeletal Musculoskeletal: Reports back pain Integumentary Denies rash Neurologic Neurologic: Denies weakness EXAM <WILL Lu - Last Filed: 02/06/25 21:22> Physical Exam Const Vital Signs: 02/06/25 16:28 02/06/25 18:28 02/06/25 20:25 Temperature 97.9 F 98.2 F Temperature Source Temporal Pulse Rate 86 76 79 Respiratory Rate 16 16 16 Blood Pressure 118/84 H 121/79 H 110/60 Blood Pressure Mean 95 93 76 Pulse Ox 98 99 98 Oxygen Delivery Method Room Air Positive well nourished, well developed and no apparent distress General Appearance ED: well developed HEENT Reports normocephalic and head/scalp atraumatic Mouth ED: Yes moist mucous membranes normal Eyes PERRL and EOMs intact bilaterally Neck full ROM and supple Chest Wall inspection of chest normal Resp normal respiratory effort and clear to auscultation bilaterally Cardio regular rate and regular rhythm GI soft to palpation, non-distended and no masses GI Narrative: Tenderness to palpation to the right lower quadrant near McBurney's point, no rigidity or guarding. No rash. Back/Spine no CVA tenderness, normal ROM and normal to inspection Back/Spine Narrative: Tenderness to palpation to the right lumbar paraspinal muscles and right flank. No overlying rash. Extremity normal to inspection and full ROM Neuro oriented x3, CN's II-XII intact bilaterally, moves all extremities, no focal motor deficits and no sensory deficits noted Sensorium / Orientation: awake and alert Psych mental status grossly normal and thought process normal Skin no rashes or lesions noted and no wounds <Dr. Bandar Chritsopher DO - Last Filed: 02/07/25 21:19> Physical Exam Const Vital Signs: 02/06/25 16:28 02/06/25 18:28 02/06/25 20:25 Temperature 97.9 F 98.2 F Temperature Source Temporal Pulse Rate 86 76 79 Respiratory Rate 16 16 16 Blood Pressure 118/84 H 121/79 H 110/60 Blood Pressure Mean 95 93 76 Pulse Ox 98 99 98 Oxygen Delivery Method Room Air [facility] <WILL Lu - Last Filed: 02/06/25 21:22> [facility] Narrative Medical decision making narrative: Patient presenting today with pain to her right flank that radiates to her back she has had over the last several days. She does have tenderness to her right flank, right low back, and right lower quadrant of her abdomen. Her pain is worse with movements. She denies history of kidney stones. She has negative CVA tenderness. Given her abdominal tenderness, CT scan of the abdomen pelvis with IV contrast will be obtained to assess for appendicitis, kidney stone, and other abnormality. Labs will be obtained. She will be given IV Toradol for pain. CBC, CMP are unremarkable. UA does show urine nitrites and 2+ bacteria. We will treat her for a UTI with Keflex with first dose here. I did consider pyelonephritis, however, she has no signs of pyelonephritis on CT, no CVA tenderness, and has no leukocytosis or lactic acidosis. She was additionally given a Percocet here for pain. I recommended that she have close follow-up with her PCP and she will be discharged home in stable condition. Lab Data Attestation: I reviewed the patient's lab results. Labs: Laboratory Results - last 24 hr 06/08/2102/06/25 02/06/25 16:50 17:40 18:10 WBC 8.4 RBC 4.48 Hgb 13.1 Hct 40.9 MCV 91.3 MCH 29.2 MCHC 32.0 RDW Std Deviation 47.8 H RDW Coeff of Gricelda 14.1 Plt Count 321 MPV 10.0 Immature Gran % (Auto) 0.200 Neut % (Auto) 58.6 Lymph % (Auto) 29.9 Cross % (Auto) 8.8 Eos % (Auto) 1.7 Baso % (Auto) 0.8 Absolute Neuts (auto) 4.9 Absolute Lymphs (auto) 2.50 Nucleated RBC % 0 Sodium 140 Potassium 4.1 Chloride 104 Carbon Dioxide 24.7 Anion Gap 12 BUN 12 Creatinine 0.89 Estim Creat Clear Calc 67.57 Est GFR (MDRD) Non-Af 80 BUN/Creatinine Ratio 13.5 Glucose 95 Lactic Acid 1.1 Calcium 10.2 Total Bilirubin 0.19 AST 25 ALT 15 Alkaline Phosphatase 109 H Total Protein 7.1 Albumin 4.4 Globulin 2.8 Albumin/Globulin Ratio 1.6 Lipase 27 Serum , Qual NEGATIVE Urine Color Straw Urine Clarity Sl. Cloudy Urine pH 6.0 Ur Specific [place] 1.010 Urine Protein 30 H Urine Glucose (UA) Normal Urine Ketones Negative Urine Occult Blood 10 H Urine Nitrite Positive H Urine Bilirubin Negative Urine Urobilinogen Normal Ur Leukocyte Esterase Negative Urine RBC 0 SEEN Urine WBC 0-5 SEEN Ur Squamous Epith Cells 0-5 SEEN Urine Bacteria 2+ Urine Mucus 0 SEEN Radiography Diagnostic Testing: Clinical Impression(s) from Imaging Studies Abdomen/Pelvis CT 02/06/25 17:15 IMPRESSION: No acute abdominopelvic finding. Reading Location: [id number] <[facility] - Last Filed: 02/07/25 21:19> [facility] Narrative Medical decision making narrative: Patient presenting today with pain to her right flank that radiates to her back she has had over the last several days. She does have tenderness to her right flank, right low back, and right lower quadrant of her abdomen. Her pain is worse with movements. She denies history of kidney stones. She has negative CVA tenderness. Given her abdominal tenderness, CT scan of the abdomen pelvis with IV contrast will be obtained to assess for appendicitis, kidney stone, and other abnormality. Labs will be obtained. She will be given IV Toradol for pain. CBC, CMP are unremarkable. UA does show urine nitrites and 2+ bacteria. We will treat her for a UTI with Keflex with first dose here. I did consider pyelonephritis, however, she has no signs of pyelonephritis on CT, no CVA tenderness, and has no leukocytosis or lactic acidosis. She was additionally given a Percocet here for pain. I recommended that she have close follow-up with her PCP and she will be discharged home in stable condition. Supervisory Physician Note Patient was seen and examined with the Advanced Practice Provider. Nursing notes and vital signs have been reviewed. Pertinent old records have been reviewed. I agree with the essential elements of the PHILIP's history, physical exam, assessment, and plan. The differential diagnosis and management options were discussed with the PHILIP. I participated in determining and agree with the management, procedures, final impression and disposition as documented. See changes noted by me. Please see addendum or separate note for any additional details. 49-year-old female presents for evaluation of right flank pain. Gen: A&O x3, NAD Head: Normocephalic, atraumatic Eyes: No sclera icterus, conjunctiva clear ENT: Moist mucous membranes Neck: Trachea midline, No JVD CV: RRR, no murmurs, no peripheral edema Resp: Lungs CTA BL, no w/r/c GI: Abd soft, non-distended, tenderness palpation of the right flank and lower quadrant, no r/r/g : No CVA tenderness Musc: Full ROM, no deformity, no midline spinal tenderness, mild tenderness to palpation of the right lumbar paraspinal musculature Skin: Warm, dry Neuro: Alert, oriented, grossly intact, sensation intact Psych: Cooperative, appropriate mood and affect Differential diagnosis includes but is not limited to urolithiasis, UTI, appendicitis, colitis, myofascial spasm. Patient's pain was treated. Abdominal pain workup ordered. CBC unremarkable without leukocytosis or anemia. CMP unremarkable without DAT or transaminitis. Lipase unremarkable. Lactic acid unremarkable. CT abdomen pelvis shows no acute intra-abdominal pathology. Urine is positive for UTI. Urine culture sent. Patient will be placed on a 7- day course of Keflex. First dose given here. Follow-up with PCP. Return precautions explained. Patient discharged home. Impression: 1. UTI 2. Right flank pain Lab Data Labs: Laboratory Results - last 24 hr 02/06/25 02/06/25 02/06/25 16:50 17:40 18:10 WBC 8.4 RBC 4.48 Hgb 13.1 Hct 40.9 MCV 91.3 MCH 29.2 MCHC 32.0 RDW Std Deviation 47.8 H RDW Coeff of [place]ric[place]da 14.1 Plt Count 321 MPV 10.0 Immature Gran % (Auto) 0.200 Neut % (Auto) 58.6 Lymph % (Auto) 29.9 Cross % (Auto) 8.8 Eos % (Auto) 1.7 Baso % (Auto) 0.8 Absolute Neuts (auto) 4.9 Absolute Lymphs (auto) 2.50 Nucleated RBC % 0 Sodium 140 Potassium 4.1 Chloride 104 Carbon Dioxide 24.7 Anion Gap 12 BUN 12 Creatinine 0.89 Estim Creat Clear Calc 67.57 Est GFR (MDRD) Non-Af 80 BUN/Creatinine Ratio 13.5 Glucose 95 Lactic Acid 1.1 Calcium 10.2 Total Bilirubin 0.19 AST 25 ALT 15 Alkaline Phosphatase 109 H Total Protein 7.1 Albumin 4.4 Globulin 2.8 Albumin/Globulin Ratio 1.6 Lipase 27 Serum , Qual NEGATIVE Urine Color Straw Urine Clarity Sl. Cloudy Urine pH 6.0 Ur Specific [place] 1.010 Urine Protein 30 H Urine Glucose (UA) Normal Urine Ketones Negative Urine Occult Blood 10 H Urine Nitrite Positive H Urine Bilirubin Negative Urine Urobilinogen Normal Ur Leukocyte Esterase Negative Urine RBC 0 SEEN Urine WBC 0-5 SEEN Ur Squamous Epith Cells 0-5 SEEN Urine Bacteria 2+ Urine Mucus 0 SEEN Radiography Diagnostic Testing: Clinical Impression(s) from Imaging Studies Abdomen/Pelvis CT 02/06/25 17:15 IMPRESSION: No acute abdominopelvic finding. Reading Location: [id number] Discharge Plan Triage Chief Complaint: Flank Pain ED Midlevel Provider: Sarah Subramanian ED Provider: Bandar Christopher Dx/Rx/DC Orders Clinical Impression: UTI (urinary tract infection), Right flank pain Instructions: Urinary Tract Infections in Women, ED Flank Pain, Uncertain Cause Prescriptions: New cephalexin 500 mg capsule 500 mg PO TID 7 Days Qty: 20 0RF No Action sumatriptan succinate 25 mg tablet 25 mg PO .QD PRN (Reason: migraine headache) trazodone 50 mg tablet 50 mg PO DAILY PRN (Reason: sleep) pantoprazole 40 mg tablet,delayed release (DR/EC) 40 mg PO DAILY Patient Comments: Take 1 tablet by mouth once daily. zonisamide 100 mg capsule 100 mg PO DAILY Patient Comments: Take 1 capsule by mouth once daily. atorvastatin 40 mg tablet 40 mg PO QHS Qty: 90 3RF Patient Comments: cholesterol carvedilol [Coreg] 6.25 mg tablet 6.25 mg PO BID Qty: 180 3RF Rx Instructions: must administer with a meal/food spironolactone 25 mg tablet 25 mg PO DAILY Qty: 90 3RF aspirin 81 MG tablet 81 mg PO DAILY@0800 Qty: 90 4RF Patient Comments: heart health Primary Care Provider: Booker Babcock Referrals: Bokoer Babcock MD [Primary Care Provider] - 5-7 Days Activity Restrictions/Additional Instructions: Follow-up with your PCP and return for any other concerns or worsening symptoms Print Language: German Disposition Disposition: Home, Self Care Discharge Date/Time: 02/06/25 20:26
[2025-02-06 18:15] LABS: Mucous, Urine 0 SEEN /hpf (<or=2+); Red Blood Cells-Urine 0 SEEN /hpf (0-5)
[2025-02-06 18:26] LABS: Lactic Acid 1.1 mmol/L (0.0-2.0)
[2025-02-06 18:28] VITALS: BP 121/79; PULSE 76; RESP 16; O2SAT 99
[2025-02-06 19:28] LABS: Color, Urine Straw (Yellow); Glucose, Dipstick Normal (Normal); Ketone-Dipstick Negative (Negative); Leukocyte Esterase-Dipstick Negative /ul (Negative); Nitrite-Dipstick Positive (Negative); Occult Blood-Urine 10 /ul (Negative); Protein-Dipstick 30 mg/dl (Negative); Urine Bilirubin Dipstick Negative (Negative); Urine Clarity Sl. Cloudy (Clear); Urine Urobilinogen Normal (Normal)
[2025-02-06] MEDS: Cephalexin 250 MG Capsule 500 MG PO (20:20)
[2025-02-06] MEDS: oxyCODONE 5 MG Tablet PO (20:21)
[2025-02-06 20:25] VITALS: BP 110/60; PULSE 79; RESP 16; TEMP 36.8; O2SAT 98
[2025-02-06 20:42] LABS: Bacteria 2+ /hpf (None Seen); Squamous Epithelial Cells - UA 0-5 SEEN /hpf (5-10); White Blood Cells 0-5 SEEN /hpf (0-5)
== END 2025-02-06 20:26 | disposition home or self-care (01) ==
PROVIDERS: Physician Assistant; Emergency Provider Surgery; PCP Family Medicine; Visit Provider Surgery
DX: N39.0 Urinary tract infection, site not specified (principal); Z90.710 Acquired absence of both cervix and uterus; I25.10 Atherosclerotic heart disease of native coronary artery without angina pectoris; R10.9 Unspecified abdominal pain; I25.2 Old myocardial infarction; E78.5 Hyperlipidemia, unspecified; Z79.82 Long term (current) use of aspirin; Z90.49 Acquired absence of other specified parts of digestive tract; Z95.5 Presence of coronary angioplasty implant and graft; F17.210 Nicotine dependence, cigarettes, uncomplicated
CPT/HCPCS: 74177; 80053; 81001; 83605; 83690; 84703; 85025; 96374; 99284; Q9967; A4216